=== PATIENT | female | born 1960 | race Caucasian/White ===

== ENCOUNTER 2018-01-09 11:16 | Inpatient (IN) | payer OTHER ==
[~2018-01-09] VITALS: Ht 152.4 cm; Wt 63.0 kg
--- NOTE | ~2018-01-09 | 2DMMODE ---
[facility] [address] [place] [address] 2 D/M-MODE ECHOCARDIOGRAM Name: KENYATTA SABILLON Room #: 170-23 ADM IN ..#: [id number] Admission: 01/09/18 Attend Phys: Teddy White, Discharge: Date of : 62 Date of Service: 01/09/18 1543 Report #: [id number] THIS REPORT FOR: //name// APPROVED REPORT Study performed: 01/09/2018 14:36:08 EXAM: Comprehensive 2D, Doppler, and color-flow Echocardiogram Patient Location: ER Room #: 9 Status: routine BSA: 1.69 HR: 81 bpm BP: 143/103 mmHg Rhythm: NSR Other Information Study Quality: Good Indications Multiple syncopal episodes. Echo Enhancing Agent Indication: Rule out Shunt Agent(s) / Amount(s) Used: Agitated Saline 6 cc 2D Dimensions RVDd: 31.16 mm LVEF(%): 64.77 (>50%) IVSd: 10.95 (7-11mm) LVOT Diam: 18.78 (18-24mm) LVDd: 47.26 mm PWd: 11.15 (7-11mm) Ascending Ao: 28.20 (22-36mm) LVDs: 30.53 (25-40mm) Aortic Root: 31.53 mm Davison's LVEF: 64.77 % Volumes Left Atrial Volume (Systole) Single Plane 4CH: 33.66 mL Single Plane 2CH: 54.08 mL LA ESV Index: 27.00 mL/m2 Aortic Valve AoV Peak Zhou.: 2.10 m/s AO Peak Gr.: 17.72 mmHg LVOT Max P.55 mmHg AO Mean Gr.: 10.01 mmHg AO V2 Mean: 1.51 m/s LVOT Max V: 1.37 m/s [facility] [place] [address] 2 D/M-MODE ECHOCARDIOGRAM Name: KENYATTA SABILLON Room #: 170-23 [facility] IN ..#: [id number] Admission: 01/09/18 Attend Phys: Teddy White, Discharge: Date of : 62 Date of Service: 01/09/18 1543 Report #: [id number] AO V2 VTI: 37.00 cm OLIVIA Vmax: 1.81 cm2 Mitral Valve E/A Ratio: 0.8 MV Decel. Time: 173.13 ms MV E Max Zhou.: 0.84 m/s MV A Zhou.: 0.99 m/s MV PHT: 50.21 ms IVRT: 83.04 ms Pulmonary Valve PV Peak Zhou.: 0.89 m/s PV Peak Gr.: 3.19 mmHg Pulmonary Vein P Vein S: 0.78 m/s P Vein A: 0.39 m/s P Vein D: 0.42 m/s P Vein A Dur.: 121.1 msec P Vein S/D Ratio: 1.86 Tricuspid Valve TR Peak Zhou.: 2.45 m/s RAP Estimate: 5.00 mmHg TR Peak Gr.: 23.93 mmHg PA Pressure: 29.00 mmHg Left Ventricle The left ventricle is normal size. There is normal LV segmental wall motion. There is normal left ventricular wall thickness. Left ventricular systolic function is normal. LVEF is 60%. Mild diastolic dysfunction is present (impaired relaxation pattern). Right Ventricle The right ventricle is normal size. The right ventricular systolic function is normal. Atria The left atrium size is normal. The right atrium size is normal. Aortic Valve The aortic valve is normal in structure. Trace aortic regurgitation. There is no aortic valvular stenosis. Mitral Valve The mitral valve is normal in structure. [place] [address] 2 D/M-MODE ECHOCARDIOGRAM Name: KENYATTA SABILLON Room #: 170-23 [facility] IN [facility]#: [id number] Admission: 01/09/18 Attend Phys: Teddy White, Discharge: Date of : 62 Date of Service: 01/09/18 1543 Report #: [id number] Tricuspid Valve The tricuspid valve is normal in structure. Trace tricuspid regurgitation. Estimated PAP 24mmHg plus the right atrial pressure Pulmonic Valve The pulmonary valve is normal in structure. Trace pulmonic regurgitation. Great Vessels The aortic root is normal in size. The ascending aorta is normal in size. IVC is not visualized. Pericardium There is no pericardial effusion. <Conclusion> The left ventricle is normal size. LVEF is 60%. The aortic valve is normal in structure. Trace aortic regurgitation. The mitral valve is normal in structure. Trace mitral regurgitation. The tricuspid valve is normal in structure. Trace tricuspid regurgitation. Estimated PAP 24mmHg plus the right atrial pressure The pulmonary valve is normal in structure. Trace pulmonic regurgitation. There is no pericardial effusion. <ELECTRONICALLY SIGNED> By: Víctor Bell MD 01/09/18 1543 1543 1543 Víctor Bell MD /INF
--- NOTE | ~2018-01-09 | S ---
[facility] [place] [address] SURGICAL PATH RPT PROCEDURE Name: KENYATTA REIS Room #: 428-P DIS IN M.R.#: [id number] Admission: 01/09/18 Date of : 62 Discharge: 01/16/18 Report #: [id number] Path Case #: [id number] PATHOLOGY REPORT COLLECTION DATE: 01/16/2018 RECEIVED DATE: 01/16/2018 SUBMITTING PHYS: Dr. Teddy Chance OTHER PHYS: Dr. Teddy Leblanc SPECIMEN(S) RECEIVED: A.Bone marrow, biopsy B.Bone marrow, clot and/or particle prep C.Bone marrow, aspirate smears D.Peripheral smear * * * * * * * * * * * * FINAL DIAGNOSIS: Bone marrow aspirate, biopsy, cell clot and peripheral blood: - Peripheral blood with pancytopenia including moderate normocytic to mildly macrocytic anemia, mild leukopenia and moderate thrombocytopenia. - Normocellular bone marrow with trilineage hematopoiesis, mild erythroid hyperplasia / myeloid hypoplasia, mild dyspoiesis and no evidence of lymphoma or acute leukemia (see comment). COMMENT: Overall, the bone marrow is normocellular for the patient's age with trilineage hematopoiesis, mild erythroid hyperplasia / myeloid hypoplasia, mild dyspoiesis and no evidence of lymphoma or acute leukemia. The dyspoiesis is mild and does not meet the morphologic criteria for myelodysplasia. Correlation with clinical history, additional laboratory and cytogenetics are recommended. (CLW:maria t; 01/18/2018) PATHOLOGIST: Yumiko Malik M.D. REPORT ELECTRONICALLY SIGNED BY: Yumiko Malik M.D. DATE/TIME: 01/18/2018 21:51 * * * * * * * * * * * * MICROSCOPIC DESCRIPTION: CBC Data (01/16/18): WBC 3,600 /uL, RBC 2.52, Hgb 8.4 g/dL, Hct 25.0 %, MCV 99.1 fL, MCH 33.4 pg, MCHC 33.7 g/dL, RDW 13.8 %, Plt 93,000 /uL. Manual white blood cell differential: segs 45%, bans, 2%, lymphs 25%, monos 25%, eos 1%, and basos 2%. Peripheral Blood Smear: Cytomorphological examination of the Handy's stained peripheral [address] [address] SURGICAL PATH RPT PROCEDURE Name: KENYATTA REIS Room #: 428-P [facility] IN ..#: [id number] Admission: 01/09/18 Date of : 62 Discharge: 01/16/18 Report #: [id number] Path Case #: [id number] blood smear confirms the provided data. Red blood cells show moderate normocytic and to mildly macrocytic anemia with no significant anisopoikilocytosis. White blood cells are mildly decreased in number. They are predominantly segmented neutrophils and are without significant dyspoiesis or significant left shift. Lymphocytes are predominantly small, round, and mature appearing with condensed chromatin and scant cytoplasm with admixed large granular lymphocytes and rare reactive appearing lymphocytes. Monocytes are mature. Platelets are moderately decreased in number and mainly normal in morphology with rare larger platelets noted. Aspirate Smears: Cytomorphological examination of the Handy's stained aspirate smears shows spicules present. The overall cellularity is approximately 50%. The myeloid to erythroid ratio is 1:1. Full myeloid maturation is identified and is without significant dyspoiesis. Erythroid maturation is mildly dyserythropoietic with irregular nuclear contours and basophilic stippling. In a 500 cell differential, there are 1% blasts (no Ford rods are seen), 51% more differentiated myeloids, 42% erythroid precursors, 5% lymphocytes and 1% plasma cells. Megakaryocytes are proportional in number and both normal and abnormal in morphology with variable sizes and nuclear abnormalities. No lymphoid aggregate or markedly atypical lymphoid cells are seen. Plasma cells are without atypia. Iron stain of the aspirate smear shows 0/4+ iron positivity with spicules present. No ringed sideroblasts are identified. Core Biopsy and Cell Clot: The decalcified bone marrow core biopsy is adequate. The bone marrow is normocellular with an overall cellularity of approximately 50%. The myeloid to erythroid ratio is 1-2:1. Myeloid maturation is without significant dyspoiesis. Erythroid maturation is mildly dyserythropoietic. Megakaryocytes are normal in number and both normal and abnormal in morphology. No lymphoid aggregates or markedly atypical lymphoid cells are seen. Bony trabeculae and blood vessels are unremarkable. The cell clot has spicules present that are similar in cellularity and differential morphology as previously described. The M/E ratio appears closer to 1:1. Iron stain of the cell clot (Block B1) shows 1/4+ iron positivity with spicules present. Flow Cytometry: Flow cytometric immunophenotypic analysis was performed at [facility]. The diagnosis is "no diagnostic immunophenotypic abnormalities detected." There are 11.8% lymphocytes. Of the lymphocytes, there are 81% T-cells with a CD4/CD8 ratio of 2.9 and no aberrant T-cell antigen expression and 10% polyclonal B-cells (kappa lambda ratio of 1.4). There are 0.6% CD34 positive cells (blasts) and precursor B cells are not detected. Granulocytes are left shifted and monocytes show evidence of maturation with decreased CD13 expression. The clinical history of [address] [place] [address] SURGICAL PATH RPT PROCEDURE Name: RAMANDEEPKENYATTA Locke Room #: 428-P [facility] IN M.R.#: [id number] Admission: 01/09/18 Date of : 62 Discharge: 01/16/18 Report #: [id number] Path Case #: [id number] pancytopenia is noted. Flow detects a left shifted myeloid maturation pattern with mild monocyte phenotypic atypia, but without an increase in CD34 positive myeloblasts (0.6% of total cells). These changes are relatively not specific. Please see separate flow cytometry report from [facility] ([id number]). Cytogenetics Analysis: Cytogenetic chromosomal analysis is pending at [facility] ([id number]). (CLW:pit; 01/18/2018) GROSS PATHOLOGY: A. Received in formalin labeled "Kenyatta Reis, BM biopsy," is a single needle core of rosa bone, measuring 1.0 cm in length and 0.2 cm in diameter. The specimen is submitted entirely in cassette A1, following decalcification. B. Received in formalin labeled "Kenyatta Reis, clot (BM aspirate)," is blood coagulum, measuring 3.0 x 1.3 x 0.1 cm in aggregate dimensions. The specimen is submitted entirely in cassette B1. (CAA; 01/16/2018) CLINICAL HISTORY: Pancytopenia, hepatosplenomegaly, syncopal attacks 57-year-old woman with pancytopenia INITIAL CPT CODE(S): A; 96714, 82442 B; 39377, 63923 C; 33949, 74710 D; 41113 Professional services performed by [facility] at [facility] [address], [place] [address] Technical services performed by [facility] at [address] [place] [address], [facility] [address], [place] [address]. [facility] [address] [place] [address] PHONE: [phone] DIRECTOR: Sanjeev Brooks M.D. * * * END OF REPORT * * *
--- NOTE | ~2018-01-09 | EKG ---
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: ELIANA : 1960 Requested By: Shahnaz Melara Order Number: [id number] MD: Pravin Kumar Measurements Intervals [place] Rate: 103 P: 9 WY: 121 QRS: -8 QRSD: 104 T: 52 QT: 380 QTc: 498 Interpretive Statements Sinus tachycardia Probable left ventricular hypertrophy Nonspecific T abnormalities, anterior leads Borderline prolonged QT interval Compared to ECG 09/13/2017 07:50:04 T-wave abnormality now present Electronically Signed On 01-10-2018 8:04:49 LINE PALLETIZER by Pravin Kumar [email or web address] <ELECTRONICALLY SIGNED> By: Pravin Kumar MD, [facility] 01/10/18 0804 1144 1144 Pravin Kumar MD, [facility] /EPI
--- NOTE | ~2018-01-09 | S ---
[facility] [place] [address] SURGICAL PATH RPT PROCEDURE Name: KENYATTA REIS Room #: 428-P ADM IN M.R.#: [id number] Admission: 01/09/18 Date of : 62 Discharge: Report #: [id number] Path Case #: [id number] PATHOLOGY REPORT COLLECTION DATE: 01/09/2018 RECEIVED DATE: 01/10/2018 SUBMITTING PHYS: Dr. Teddy White OTHER PHYS: Dr. Pedro Leblanc SPECIMEN(S) RECEIVED: A.Peripheral smear * * * * * * * * * * * * FINAL DIAGNOSIS: Peripheral blood smear: - Moderate normocytic anemia and severe thrombocytopenia. (See comment) COMMENT: Overall the peripheral blood has moderate normocytic anemia and severe thrombocytopenia. The WBC count and differential are within the normal reference ranges. The etiology of the findings is unclear based entirely on slide review. Potential causes of normocytic anemia include anemia of chronic disease, treated and/or compensated vitamin and mineral deficiencies, acute blood loss, dilutional and primary bone marrow disorders. Potential causes of thrombocytopenia include immune and non-immune platelet destruction, drug and/or toxic exposures, consumption, dilutional and primary bone marrow disorders. Correlation with clinical history and additional laboratory data is recommended. (CLW:malcolm; 01/11/2018) PATHOLOGIST: Yumiko Malik M.D. REPORT ELECTRONICALLY SIGNED BY: Yumiko Malik M.D. DATE/TIME: 01/11/2018 13:15 * * * * * * * * * * * * MICROSCOPIC DESCRIPTION: CBC Data (01/09/2018): WBC 7,400 /uL, RBC 2.94, hemoglobin 9.9 g/dL, hematocrit 28.4%, MCV 96.6 fL, MCH 33.8 pg, MCHC 35.0 g/dL, RDW 13.5%. Platelet count 25,000 /uL. Automated white blood cell differential: segs 78.9%, lymphs 13.2%, monos 7.7%, eos 0.1% and basos 0.1%. Peripheral Blood Smear: Cytomorphological examination of the Handy's stained peripheral blood smear confirms the provided data. Red blood cells show moderate normocytic anemia with no significant anisopoikilocytosis. [address] [address] SURGICAL PATH RPT PROCEDURE Name: KENYATTA REIS Room #: 428-P ADM IN M.R.#: [id number] Admission: 01/09/18 Date of : 62 Discharge: Report #: [id number] Path Case #: [id number] White blood cells are predominantly segmented neutrophils and are without significant dyspoiesis or significant left shift. Lymphocytes are predominantly small, round, and mature appearing with condensed chromatin and scant cytoplasm with admixed large granular lymphocytes. On scanning, no markedly atypical lymphoid cells are seen. Monocytes are mature. Platelets are markedly decreased in number and mainly normal in morphology with rare larger platelets noted. (CLW:malcolm; 01/11/2018) GROSS PATHOLOGY: Received are two Handy's stained peripheral blood smears labeled, Kenyatta Reis CLINICAL HISTORY: A 57-year-old woman with anemia and thrombocytopenia. Morphologic review of the peripheral blood smear is requested by the patient's physician. INITIAL CPT CODE(S): A; NC Professional services performed by [facility] at [facility] [address], [place] [address] Technical services performed by [facility] at [address] [place] [address], [address], [place] [address]. [facility] [address] [place] [address] PHONE: [phone] DIRECTOR: Sanjeev Brooks M.D. * * * END OF REPORT * * *
--- NOTE | ~2018-01-09 | HC ---
[facility] [place] [address] CONSULTATION Name: KENYATTA SABILLON Room #: 428-P ADM IN M.R.#: [id number] Admission: 01/09/18 Attend Phys: Teddy White DO Discharge: Date of : 62 Report #: [id number] THIS REPORT FOR: //name// CC: Angie ROLAND physician/PCP Teddy Scott MD REASON FOR CONSULTATION: Concern about lymphoma. HISTORY OF PRESENT ILLNESS: The patient is a 57-year-old lady who lives in [facility], who presented to the hospital with complaints of syncope. When she was here, she was found to have abnormal liver test as well as anemia and thrombocytopenia. The patient gives a history of having had some stomach troubles back in September. They thought she had gallbladder difficulties. She had a cholecystectomy and EGD at that time. Symptoms had resolved. Since that time, she has had ongoing difficulties. She has about a 25-pound weight loss from to now. She has a decreased appetite. Food, she eats small bites; if she eats more, she does not feel very good and maybe takes Prilosec intermittently, maybe 2 per week. Has been taking ibuprofen about 8-10 per day for about the last 6 months. She also describes the passing out that is up to 10 times a day. It is worse. When it first started beginning, noticed it when she was getting out of the bathtub. Note that she does take a hot shower. It sounds like she would feel like the curtain coming down. When she would sort of come to, she will feel sort of tingly all over and also be sweaty, which sounds to me like an autonomic nervous system. The nausea has been going on for about 3 days. She has also had been vomiting about 15 times per day. It sounds like she has a bad back from the past. She has no headache. No fevers, although she has felt chilled, but the chills are the tremor she gets after the passing out and recovery. She has had diarrhea for about the last 2-3 months, sort of watery in nature. She describes it to various people as sort of black and other people not black, so it is hard to know. No skin rash. No trouble moving her air. No arm or leg swelling. No dysuria. No vaginal discharge or bleeding. No breast abnormalities. PAST MEDICAL HISTORY: Past history is notable for the history of the back pain of about, I think she said about, 20 years' duration. It sounds like she might even have had some type of vertebroplasty in the past. It sounds like she might have been on some narcotics previous to last admit, though I did not go into details with her. Past history, as mentioned includes, history of hypertension, history of peptic ulcer disease and hiatal hernia in the past. Last colonoscopy probably about 10 [facility] [address] [place] [address] CONSULTATION Name: KENYATTA SABILLON Room #: 428-P ADM IN M.R.#: [id number] Admission: 01/09/18 Attend Phys: Teddy White DO Discharge: Date of : 62 Report #: [id number] years ago. Last EGD was about August or September and one was planned for later today. Also, has a history of GERD, had a hysterectomy and BSO for fibroids in the past, also had cardiomyopathy and it sounds like it improved or resolved. ALLERGIES: AMOXICILLIN, BENADRYL AND PROCHLORPERAZINE. FAMILY HISTORY: Father had hypertension and had a stroke about 76. Mother at 81 maybe with lymphoma. Brothers and sisters without health issues. One daughter who is alive and well. SOCIAL HISTORY: She retired from [employer]. Lives near [place], [address] [place] in [place]. Nonsmoker. Alcohol, maybe 3 beverages on Fridays and Saturdays. No street drugs. MEDICATIONS: At this time in the hospital currently include pantoprazole 40 daily IV, tramadol p.r.n., IV fluids and Zofran p.r.n. LABORATORY DATA: Lab tests are notable for a BUN of 62 yesterday, creatinine of yesterday; note that baseline appears to be more like around 1.3 or 1.4 back in September after discharge from the hospital. Transaminases, AST was 245; back on discharge, it had been 48 and 69. Total bilirubin 5 on discharge; last time, it had been 1.6. Direct bilirubin 3.2; in the past, it had been 0.8. Alkaline phosphatase 117 and ALT 86; on discharge, it had been 30. Total protein 9.5, but she may be dehydrated and may need to consider SPEP. Albumin 4.5; on discharge, it had been 3.7. We will see repeat after hydration. LDH pending. Alcohol level this admit less than 10. Iron 82, TIBC 226 and percent saturation 36. INR yesterday 1.3, today repeat pending. APTT not drawn this admit; had been normal. Fibrinogen pending. D-dimer pending. Drug screen negative. White count yesterday 7.4, repeat pending. Note that in talking with the tech, no acute forms or no viral-type changes. Hemoglobin yesterday 11.9, repeat 9.9 and this morning is pending. Note that in talking with the tech, he said no schistocytes were seen. MCV 96.6, which is stable for this patient. RDW of 13.5, stable. Platelets yesterday first measure 50,000; second measured 25,000; also back in 09/13, they were 130,000; back in 2013, they were 208,000 range. Differential had slightly increased neutrophils with a differential of 79% segmented neutrophils, 13.2% lymphocytes, 7.7 monocytes, 0.1 eosinophils, 0.1 basophils and ANC of 5.8, with a comment of large platelets being seen. No anatomical history. MPV was about 10.3, if I recall. Retic count pending. Immature platelet fraction pending. Peripheral smear review pending. TSH back in September normal. Folate ordered just and it came back at 4; the patient has been placed on folic acid. Vitamin B12 normal range at 633. Hepatitis markers and CMV pending. U/A yesterday had showed trace blood. Bilirubin test was negative. Microscopy, 0-2 rbc's. IMAGING DATA: Imaging studies this admit include chest x-ray with no acute [address] [address] CONSULTATION Name: KENYATTA SABILLON Room #: 428-P ADM IN M.R.#: [id number] Admission: 01/09/18 Attend Phys: Teddy White DO Discharge: Date of : 62 Report #: [id number] head, no evidence of intracranial hemorrhage or other acute changes. Ultrasound of the carotids, no significant plaque within the carotid arteries. MRCP without contrast showing unremarkable. MRI and CT showed the same splenomegaly, but really no obstruction and then MRIs of the head that are back have not really shown any lesions. ASSESSMENT AND PLAN: 1. Anemia. Hemoglobin dropped to 9.9; this morning's is pending. Iron panel do not suggest clear iron deficiency. Low folate, being replaced. B12 is okay. It sounds like she is not hemolyzing, but LDH and retic count are pending and peripheral smear review pending. Waiting to try Hemoccult stool, but I am concerned about the patient's description of black stool. We will very likely transfuse unless hemoglobin and platelets are rebounding this morning. I have called in to GI, but I have not heard. I suspect that it is GI blood loss and renal insufficiency. Also, note that chichi did not see any schistocytes. 2. Thrombocytopenia, 50,000 on admit and 25,000 yesterday; this a.m. is pending. Platelet antibody pending. Other tests as above pending and chichi says MPV 10 range. Coags were normal, but repeat pending. We will very likely transfuse if the patient is lower or about the same. Right now, during this time, I am uncertain and even may like to keep her platelets close to 50,000. 3. Elevated total bilirubin, AST and ALT, status post cholecystectomy 4 months ago. MRCP shows no obstruction pattern. Would wonder about a cholestatic picture, may be medication related, but she is not on much. We will defer to GI and talk to them. 4. Epigastric pain, nausea and vomiting. I suspect that it is nonsteroidal-related gastritis due to ibuprofen. Awaiting GI scope when she recovers. 5. A 25-pound weight loss, probably from anorexia and poor appetite. 6. Slight hepatomegaly with liver palpable about 7 cm below the costal margin. We will continue watching. 7. Syncopal episodes, unclear episode or etiology, may be related to orthostatic hypertension. 8. Chronic back pain of 20 years. Avoid nonsteroidals. 9. Bruising reported by the patient and her concern for leukemia or lymphoma. Mostly, these are in areas of trauma, suspect related to platelets and it may indicate that her platelets have been lower than usual for the last several weeks. 10. Renal insufficiency. Continues IV fluids. 11. Splenomegaly. Unclear why spleen is above 95th percentile. We will sort out as we go along and may need additional testing, such as bone marrow. We will follow with you. <ELECTRONICALLY SIGNED> By: Pedro Leblanc MD 01/11/18 0732 0824 1019 Pedro Leblanc MD /nt
--- NOTE | ~2018-01-09 | HC ---
[facility] [place] [address] CONSULTATION Name: KENYATTA SABILLON Room #: 428-P [facility] IN M.R.#: [id number] Admission: 01/09/18 Attend Phys: Tedyd White DO Discharge: 01/16/18 Date of : 62 Report #: [id number] THIS REPORT FOR: //name// CC: ASUNCION physician/PCP Teddy White DATE OF SERVICE: 01/09/2018 HISTORY OF PRESENT ILLNESS: This is a 57-year-old female patient who was evaluated by me for any neurological etiology for this patient's passing out spell. This patient had multiple passing out spells. She had one 6 months ago, but she did not seek any medical attention. She had one in the shower, which led to bruises on the shoulder as well as head. Nobody witnessed any seizure activity. She tends to feel dizzy when she is standing. If she can sit down, she can sometime abort her spell. REVIEW OF SYSTEMS: Indicate that this patient does drink about 3 alcoholic drinks every day on the weekend. Record indicates she had some cardiomyopathy. Presently, she is having pretty significant amount of liver abnormality with a total bilirubin of 5. SGOT, SGPT is high. She is otherwise retired. She has a history of weight loss. When she came in, her potassium was low. Her BUN and creatinine is high. GFR is only 22. So she is having multiple problems. This was a relevant 14-point review of system. PAST MEDICAL HISTORY: Positive for this spell 6 months ago. FAMILY HISTORY: Negative for congenital epilepsy. SOCIAL HISTORY: She drinks alcohol as described above. PHYSICAL EXAMINATION: The patient is alert, responsive, able to follow simple and complex command. Cranial nerve examination 2-12 is unremarkable. Strength, sensation, reflexes and tone is symmetrical. There is no meningeal sign. There is no carotid bruit. I could not look at the patient's fundus. Cardiac examination is unremarkable. No respiratory difficulty or rhonchi. She is moderately well built individual. Her hearing and vision looks adequate. She has no thyroid mass. Blood pressure is 155/93, respirations 18, pulse is 82, temperature is 98.2. LABORATORY DATA: White count is ____ and as mentioned above, she has multiple abnormalities in the blood. Head CT scan does not show any acute changes. Carotid Doppler is unremarkable. IMPRESSION AND PLAN: It is unlikely that there is any neurological etiology for the patient's symptoms. However, with so many things going on with this patient, I think it will be desirable to exclude that. I have ordered an MRI in [address] [address] CONSULTATION Name: KENYATTA SABILLON Room #: 428-P [facility] IN M.R.#: [id number] Admission: 01/09/18 Attend Phys: Teddy White DO Discharge: 01/16/18 Date of : 62 Report #: [id number] this patient and I will also get an EEG done. If both of them are okay, then it will be even less likely that this patient has any neurological etiology and then the concentration should be on evaluating and managing non-neurological etiology, which I will defer to you. Thank you very much for this referral and if you have any question, please feel free to contact me. <ELECTRONICALLY SIGNED> By: Steven Jefferson MD 01/19/18 1549 [id number] 215 Steven Jefferson MD /nt
--- NOTE | ~2018-01-09 | S ---
[facility] [place] [address] SURGICAL PATH RPT PROCEDURE Name: KENYATTA REIS Room #: 428-P ADM IN M.R.#: [id number] Admission: 01/09/18 Date of : 62 Discharge: Report #: [id number] Path Case #: [id number] PATHOLOGY REPORT COLLECTION DATE: 01/14/2018 RECEIVED DATE: 01/14/2018 SUBMITTING PHYS: Dr. Sergo Martins OTHER PHYS: Dr. Teddy White SPECIMEN(S) RECEIVED: A.Gastric bx B.Bx of distal esophagus * * * * * * * * * * * * FINAL DIAGNOSIS: A. Gastric bx: - Mild chronic inactive gastritis. - An H. pylori immunostain is negative (Block A1; appropriately reactive control). B. Bx of distal esophagus: - Columnar junctional mucosa; chronically inflamed. - Negative for intestinal metaplasia. - No squamous mucosa identified. PATHOLOGIST: Freddy Royal M.D. REPORT ELECTRONICALLY SIGNED BY: Freddy Royal M.D. DATE/TIME: 01/15/2018 09:09 * * * * * * * * * * * * GROSS PATHOLOGY: A. Received in formalin labeled "Kenyatta Reis, gastric BX, rule out H. pylori," are 2 segments of rosa soft tissue measuring 0.8 x 0.2 x 0.2 cm in aggregate dimensions and ranging from 0.3 to 0.5 cm in maximum dimension. The specimen is submitted entirely in cassette A1. B. Received in formalin labeled "Kenyatta Chato, BX of distal esophagus rule out Santiago's," is a segment of rosa soft tissue measuring 0.4 cm in maximum dimension. The specimen is submitted entirely in cassette B1. (TSD; 01/14/2018) CLINICAL HISTORY: Pre-OP DX: GI bleed, melena Post-OP DX: Hiatal hernia, esophagitis, gastritis INITIAL CPT CODE(S): [facility] [address] [place] [address] SURGICAL PATH RPT PROCEDURE Name: KENYATTA REIS Room #: 428-P ADM IN M.R.#: [id number] Admission: 01/09/18 Date of : 62 Discharge: Report #: [id number] Path Case #: [id number]; [id number], [id number] B; [id number] Professional services performed by [facility] [address], [place] [address] Technical services performed by [facility] at [address] [place] [address], [address], [place] [address]. [facility] [address] [address] PHONE: [phone] DIRECTOR: Sanjeev Brooks M.D. * * * END OF REPORT * * *
--- NOTE | ~2018-01-09 | EEG ---
[facility] [place] [address] ELECTROENCEPHALOGRAM Name: KENYATTA SABILLON Room #: 428-P [facility] IN M.R.#: [id number] Admission: 01/09/18 Attend Phys: Teddy White DO Discharge: 01/16/18 Date of : 62 Report #: [id number] THIS REPORT FOR: //name// CC: ASUNCION physician/PCP Teddy White DATE OF SERVICE: 01/10/2018 The patient is being evaluated for syncope. The background activity in this patient's EEG is about 9 Hz and 30 microvolts. There is a symmetrical activity. This patient became drowsy and that is associated with bilateral slowing and vertex sharp waves on both sides. Throughout the record, no active epileptiform activity was noticed. IMPRESSION: This patient's EEG is intermixed with some theta range slowing on both sides. There is a nonspecific finding which can occur with drowsiness, effect of psychotropic medication, dementia, etc. No active epileptiform activity was noticed during this record. Thank you very much for this referral. <ELECTRONICALLY SIGNED> By: Steven Jefferson MD 01/19/18 1552 1826 1841 Steven Jefferson MD /nt
[~2018-01-09 11:16] MED LIST: APAP650 PO; BENADRYL ALLERG25 MG PO; BENADRYL25 MG PO; CATAPRES0.1 MG PO; CLEOCIN HCL150 MG PO; CLONAZEPAM 0.50.5 M1 PO; FLEXERIL PO; IBUPROFEN 600600 M1 PO; LAMICTAL; LISINOPRIL10 MG PO; METOPROLOL SUCC25 M1 PO; NAPROSYN500 MG PO; NOHOMEMEDICATIONS; NORCO 5-325 TA1 EACH PO; PERCOCET 7.5-31 EACH PO; PHENERGAN 25 MG25 M1 PO; PREDNISONE 20 M20 MG PO; PREDNISONE 5 MG5 MG PO; PREDNISONE50 MG PO; PROTONIX40 M2 PO; REGLAN 5 MG TAB5 MG GT; SUBOXONE 2 MG-1 EAC1; WELLBUTRIN XL300 M1 PO; XANAX XR1 MG PO; ZANTAC 150MG T150 MG PO; ZOFRAN ODT8 MG PO; ZOFRAN4 MG PO
[2018-01-09 11:24] VITALS: BP 150/108
[2018-01-09 11:54] LABS: ABSOLUTE NEUTROPHILS 9.5 thou/uL (1.4-8.2); BASOPHILS 0.3 % (0.0-2.0); HEMATOCRIT 34.3 % (37.0-47.0); HEMOGLOBIN 11.9 gm/dL (12.0-15.0); LYMPHOCYTES 7.8 % (24.0-44.0); MCH 33.4 pg (26.0-34.0); MCHC 34.8 g/dL (28.0-37.0); MONOCYTES 6.8 % (1.0-8.0); POLYS 85.1 % (36.0-66.0); RBC 3.57 mil/uL (4.20-5.00); RDW 13.6 % (10.5-14.5); WBC 11.1 thou/uL (4.0-11.0)
[2018-01-09 12:08] LABS: INR 1.3; PROTIME 12.9 Seconds (9.3-11.4)
[2018-01-09 12:09] LABS: ANION GAP 18 mmol/L (7-16); BUN 62 mg/dL (7-18); CALCIUM 9.6 mg/dL (8.5-10.1); CHLORIDE 93 mmol/L (98-107); CO2 25 mmol/L (21-32); CREATININE 2.3 mg/dL (0.6-1.0); GLUCOSE 181 mg/dL (74-106); SODIUM 136 mmol/L (136-145)
[2018-01-09 12:16] LABS: ALBUMIN 4.5 g/dL (3.4-5.0); DIRECT BILIRUBIN 3.2 mg/dL (<0.1-0.3); SGOT 245 U/L (15-37); SGPT 86 U/L (30-65); TOTAL PROTEIN 9.5 g/dL (6.4-8.2); TROPONIN-I < 0.04 ng/mL (<0.06)
[2018-01-09 12:22] LABS: PLATELET COUNT 50 thou/uL (150-400)
[2018-01-09 15:13] VITALS: BP 143/80
[2018-01-09 15:48] VITALS: BP 159/75
[2018-01-09 17:54] VITALS: BP 155/93
[2018-01-09 19:54] LABS: ABSOLUTE NEUTROPHILS 5.8 thou/uL (1.4-8.2); BASOPHILS 0.1 % (0.0-2.0); EOSINOPHILS 0.1 % (0.0-3.0); HEMATOCRIT 28.4 % (37.0-47.0); LYMPHOCYTES 13.2 % (24.0-44.0); MCH 33.8 pg (26.0-34.0); MCV 96.6 fL (80.0-100.0); MONOCYTES 7.7 % (1.0-8.0); POLYS 78.9 % (36.0-66.0); RBC 2.94 mil/uL (4.20-5.00); RDW 13.5 % (10.5-14.5); WBC 7.4 thou/uL (4.0-11.0)
[2018-01-09 19:56] LABS: HEMOGLOBIN 9.9 gm/dL (12.0-15.0)
[2018-01-09 20:00] VITALS: BP 149/93
[2018-01-09 20:04] LABS: % SATURATION 36 % (20-39); IRON 82 ug/dL (50-170); TIBC 226 ug/dL (250-450)
[2018-01-09 20:34] LABS: LARGE PLATELETS OCCASIONAL; PLATELET COUNT 25 thou/uL (150-400)
[2018-01-10] VITALS: BP 121/82
[2018-01-10 00:52] LABS: URINE BLOOD TRACE (Negative); URINE GLUCOSE-RANDOM* NEGATIVE (Negative); URINE KETONES 1+ (Negative); URINE LEUKOCYTES-REFLEX NEGATIVE (Negative); URINE NITRITE-REFLEX NEGATIVE (Negative); URINE PROTEIN (DIPSTICK) TRACE (Negative)
[2018-01-10 00:54] LABS: ICTOTEST (BILI CONFIRMATORY) Negative (Negative); URINE BILIRUBIN NEGATIVE (Negative); URINE CLARITY SL CLOUDY; URINE COLOR DARK YELLOW
[2018-01-10 03:15] LABS: AMP/METHAMP Negative (Negative); BARBITURATES Negative (Negative); BENZODIAZEPINES Negative (Negative); COCAINE Negative (Negative); METHADONE Negative (Negative); OPIATES Negative (Negative); PCP Negative (Negative)
[2018-01-10 04:02] VITALS: BP 138/97
[2018-01-10 07:40] VITALS: BP 139/103
[2018-01-10 08:31] LABS: ABSOLUTE NEUTROPHILS 3.6 thou/uL (1.4-8.2); BASOPHILS 0.2 % (0.0-2.0); EOSINOPHILS 0.5 % (0.0-3.0); HEMATOCRIT 26.8 % (37.0-47.0); HEMOGLOBIN 9.4 gm/dL (12.0-15.0); LYMPHOCYTES 17.4 % (24.0-44.0); MCH 34.1 pg (26.0-34.0); MCV 97.5 fL (80.0-100.0); OBSERVED RETIC COUNT 0.87 % (0.6-2.6); POLYS 73.9 % (36.0-66.0); RBC 2.75 mil/uL (4.20-5.00); RDW 13.4 % (10.5-14.5); WBC 4.8 thou/uL (4.0-11.0)
[2018-01-10 08:35] VITALS: BP 127/91
[2018-01-10 08:40] LABS: ALBUMIN 3.5 g/dL (3.4-5.0); TOTAL BILIRUBIN 2.6 mg/dL (<0.1-1.0); TOTAL PROTEIN 7.2 g/dL (6.4-8.2)
[2018-01-10 08:44] LABS: D-DIMER 2.47 ug/mLFEU (0.19-0.50); FIBRINOGEN 197.3 mg/dL (210-360); INR 1.3; PROTIME 13.1 Seconds (9.3-11.4)
[2018-01-10 09:22] LABS: PLATELET COUNT 22 thou/uL (150-400)
[2018-01-10 10:53] LABS: CALCIUM 8.1 mg/dL (8.5-10.1); CREATININE 1.4 mg/dL (0.6-1.0)
[2018-01-10 10:56] LABS: POTASSIUM 2.8 mmol/L (3.5-5.1)
[2018-01-10 12:03] VITALS: BP 135/92; BP 139/74
[2018-01-10 15:33] LABS: HEMATOCRIT 25.4 % (37.0-47.0); HEMOGLOBIN 8.7 gm/dL (12.0-15.0); MCH 33.7 pg (26.0-34.0); MCHC 34.4 g/dL (28.0-37.0); MCV 97.9 fL (80.0-100.0); RBC 2.6 mil/uL (4.20-5.00); RDW 13.6 % (10.5-14.5); WBC 3.9 thou/uL (4.0-11.0)
[2018-01-10 16:00] VITALS: BP 161/93
[2018-01-11] LABS: MAGNESIUM 1.4 mg/dL (1.8-2.4); POTASSIUM 3.1 mmol/L (3.5-5.1)
[2018-01-11 01:06] LABS: HAV IgM AB (ANTI-HAV IgM) Negative (Negative); HEPATITIS B SURFACE AG Negative (Negative); HEPATITIS C VIRUS AB <0.1 (0.0-0.9)
[2018-01-11 04:00] VITALS: BP 146/67
[2018-01-11 07:08] LABS: HEMOGLOBIN 8.4 gm/dL (12.0-15.0); MCV 98.5 fL (80.0-100.0); WBC 2.9 thou/uL (4.0-11.0)
[2018-01-11 07:10] LABS: HEMATOCRIT 24.4 % (37.0-47.0); MCH 33.8 pg (26.0-34.0); MCHC 34.3 g/dL (28.0-37.0); PLATELET COUNT 39 thou/uL (150-400); RBC 2.47 mil/uL (4.20-5.00); RDW 13.4 % (10.5-14.5)
[2018-01-11 07:12] VITALS: BP 136/79
[2018-01-11 07:24] LABS: CALCIUM 8.3 mg/dL (8.5-10.1); POTASSIUM 3.9 mmol/L (3.5-5.1)
[2018-01-11 08:22] LABS: ALBUMIN 3.1 g/dL (3.4-5.0); DIRECT BILIRUBIN 1.1 mg/dL (<0.1-0.3); TOTAL BILIRUBIN 1.6 mg/dL (<0.1-1.0)
[2018-01-11 09:12] LABS: ABSOLUTE NEUTROPHILS 1.9 thou/uL (1.4-8.2); PLATELET ESTIMATE DECREASED
[2018-01-11 11:07] VITALS: BP 130/86
[2018-01-11 15:14] VITALS: BP 141/76
[2018-01-11 19:10] VITALS: BP 136/92
[2018-01-12 00:39] VITALS: BP 157/95
[2018-01-12 03:51] VITALS: BP 149/84
[2018-01-12 05:23] LABS: ABSOLUTE NEUTROPHILS 2.1 thou/uL (1.4-8.2); BASOPHILS 0.8 % (0.0-2.0); EOSINOPHILS 2.6 % (0.0-3.0); HEMATOCRIT 26.1 % (37.0-47.0); HEMOGLOBIN 8.8 gm/dL (12.0-15.0); LYMPHOCYTES 26.4 % (24.0-44.0); MCH 33.6 pg (26.0-34.0); MCHC 33.8 g/dL (28.0-37.0); MCV 99.5 fL (80.0-100.0); MONOCYTES 8.4 % (1.0-8.0); PLATELET COUNT 50 thou/uL (150-400); POLYS 61.8 % (36.0-66.0); RBC 2.62 mil/uL (4.20-5.00); RDW 13.5 % (10.5-14.5); WBC 3.3 thou/uL (4.0-11.0)
[2018-01-12 05:41] LABS: ALBUMIN 3.3 g/dL (3.4-5.0); CALCIUM 7.8 mg/dL (8.5-10.1); CREATININE 0.9 mg/dL (0.6-1.0); TOTAL BILIRUBIN 1.3 mg/dL (<0.1-1.0); TOTAL PROTEIN 7.4 g/dL (6.4-8.2)
[2018-01-12 05:42] LABS: POTASSIUM 2.9 mmol/L (3.5-5.1)
[2018-01-12 08:13] VITALS: BP 163/103
[2018-01-12 16:30] VITALS: BP 142/98
[2018-01-12 20:26] VITALS: BP 150/90
[2018-01-13 04:17] VITALS: BP 135/80
[2018-01-13 05:16] LABS: ABSOLUTE NEUTROPHILS 2.3 thou/uL (1.4-8.2); EOSINOPHILS 2.1 % (0.0-3.0); HEMOGLOBIN 8.4 gm/dL (12.0-15.0); MCV 98.2 fL (80.0-100.0); MONOCYTES 11.5 % (1.0-8.0)
[2018-01-13 05:20] LABS: BASOPHILS 0.5 % (0.0-2.0); HEMATOCRIT 24.2 % (37.0-47.0); LYMPHOCYTES 20.7 % (24.0-44.0); MCH 33.9 pg (26.0-34.0); MCHC 34.5 g/dL (28.0-37.0); PLATELET COUNT 38 thou/uL (150-400); POLYS 65.2 % (36.0-66.0); RBC 2.46 mil/uL (4.20-5.00); RDW 13.6 % (10.5-14.5); WBC 3.5 thou/uL (4.0-11.0)
[2018-01-13 05:23] LABS: CALCIUM 7.8 mg/dL (8.5-10.1); CREATININE 0.9 mg/dL (0.6-1.0); POTASSIUM 3.3 mmol/L (3.5-5.1)
[2018-01-13 08:00] VITALS: BP 147/98
[2018-01-13 11:22] VITALS: BP 158/98; BP 160/89
[2018-01-13 15:13] LABS: MAGNESIUM 1.1 mg/dL (1.8-2.4); POTASSIUM 3.5 mmol/L (3.5-5.1)
[2018-01-13 18:16] VITALS: BP 150/98; BP 154/98
[2018-01-13 20:00] VITALS: BP 164/105
[2018-01-14] VITALS (11 sets, daily range): BP systolic 102–182; BP diastolic 47–119
[2018-01-14 06:06] LABS: HEMATOCRIT 24.5 % (37.0-47.0); HEMOGLOBIN 8.3 gm/dL (12.0-15.0); MCH 33.7 pg (26.0-34.0); RBC 2.47 mil/uL (4.20-5.00); RDW 14.2 % (10.5-14.5); WBC 3.2 thou/uL (4.0-11.0)
[2018-01-14 06:25] LABS: CALCIUM 8.9 mg/dL (8.5-10.1); CREATININE 0.8 mg/dL (0.6-1.0); POTASSIUM 3.6 mmol/L (3.5-5.1)
[2018-01-14 08:49] LABS: PLATELET COUNT 63 thou/uL (150-400)
[2018-01-14 08:54] LABS: PLATELET ESTIMATE DECREASED
[2018-01-14 14:09] LABS: IgA 334 mg/dL (87-352); IgG 1165 mg/dL (700-1600); IgM 318 mg/dL (26-217)
[2018-01-15 03:00] VITALS: BP 161/98
[2018-01-15 05:55] LABS: ALBUMIN 3.2 g/dL (3.4-5.0); CREATININE 0.9 mg/dL (0.6-1.0); POTASSIUM 3.7 mmol/L (3.5-5.1); TOTAL BILIRUBIN 1.3 mg/dL (<0.1-1.0); TOTAL PROTEIN 7.1 g/dL (6.4-8.2)
[2018-01-15 06:03] LABS: HEMATOCRIT 23.2 % (37.0-47.0); HEMOGLOBIN 7.8 gm/dL (12.0-15.0); MCH 33.2 pg (26.0-34.0); MCHC 33.8 g/dL (28.0-37.0); MCV 98.5 fL (80.0-100.0); PLATELET COUNT 66 thou/uL (150-400); RBC 2.36 mil/uL (4.20-5.00); WBC 2.9 thou/uL (4.0-11.0)
[2018-01-15 07:09] VITALS: BP 151/87
[2018-01-15 07:23] LABS: ABSOLUTE NEUTROPHILS 1.9 thou/uL (1.4-8.2)
[2018-01-15 07:50] VITALS: BP 151/87
[2018-01-15 11:54] VITALS: BP 114/75
[2018-01-15 12:09] LABS: KAPPA FREE LIGHT CHAINS 25.3 mg/L (3.3-19.4); KAPPA/LAMBDA RATIO 1.02 (0.26-1.65); LAMBDA FREE LIGHT CHAINS 24.8 mg/L (5.7-26.3)
[2018-01-15 15:00] VITALS: BP 132/86
[2018-01-15 19:15] VITALS: BP 123/78
[2018-01-16 03:40] VITALS: BP 160/101
[2018-01-16 06:13] LABS: HEMOGLOBIN 8.4 gm/dL (12.0-15.0); MCH 33.4 pg (26.0-34.0); MCHC 33.7 g/dL (28.0-37.0); MCV 99.1 fL (80.0-100.0); PLATELET COUNT 93 thou/uL (150-400); RBC 2.52 mil/uL (4.20-5.00); RDW 13.8 % (10.5-14.5); WBC 3.6 thou/uL (4.0-11.0)
[2018-01-16 06:27] LABS: CALCIUM 8.9 mg/dL (8.5-10.1); CREATININE 0.9 mg/dL (0.6-1.0); POTASSIUM 3.3 mmol/L (3.5-5.1)
[2018-01-16 07:41] VITALS: BP 141/90
[2018-01-16 07:59] VITALS: BP 141/90
[2018-01-16 08:43] LABS: ABSOLUTE NEUTROPHILS 1.7 thou/uL (1.4-8.2)
[2018-01-16 10:31] VITALS: BP 125/84
[2018-01-16] MEDS ORDERED: OXYCODONE HCL 55 MG PO (10:36)
[2018-01-16 12:17] VITALS: BP 125/84
== END 2018-01-16 12:55 | disposition home or self-care (01) | DRG 813 ==
LOC: ER 11:16 → EROBS 12:21 → 4E 12:21 → EROBS 16:02 → 4E 16:21
PROVIDERS: Emergency Medicine; Family Medicine; Internal Medicine Gastroenterology; Internal Medicine Hematology & Oncology
PROC: 30233R1 Transfusion of Nonautologous Platelets into Peripheral Vein, Percutaneous Approach (ICD-10-PCS; principal; 2018-01-14)
PROC: 0DB68ZX Excision of Stomach, Via Natural or Artificial Opening Endoscopic, Diagnostic (ICD-10-PCS; principal; 2018-01-14)
PROC: 0DB98ZX Excision of Duodenum, Via Natural or Artificial Opening Endoscopic, Diagnostic (ICD-10-PCS; principal; 2018-01-14)
PROC: 07DR3ZX Extraction of Iliac Bone Marrow, Percutaneous Approach, Diagnostic (ICD-10-PCS; 2018-01-16)
PROC: 079T3ZX Drainage of Bone Marrow, Percutaneous Approach, Diagnostic (ICD-10-PCS; 2018-01-16)
DX: D69.6 Thrombocytopenia, unspecified (principal); K29.71 Gastritis, unspecified, with bleeding; N17.1 Acute kidney failure with acute cortical necrosis; E43 Unspecified severe protein-calorie malnutrition; D61.818 Other pancytopenia; K92.1 Melena; D75.89 Other specified diseases of blood and blood-forming organs; I95.1 Orthostatic hypotension; S40.019A Contusion of unspecified shoulder, initial encounter; R63.4 Abnormal weight loss; D64.9 Anemia, unspecified; R16.0 Hepatomegaly, not elsewhere classified; G89.29 Other chronic pain; M54.9 Dorsalgia, unspecified; F03.90 Unspecified dementia, unspecified severity, without behavioral disturbance, psychotic disturbance, mood disturbance, and anxiety; E87.6 Hypokalemia; K20.9 Esophagitis, unspecified; K44.9 Diaphragmatic hernia without obstruction or gangrene; R74.0 Nonspecific elevation of levels of transaminase and lactic acid dehydrogenase [LDH]; F10.20 Alcohol dependence, uncomplicated; M47.892 Other spondylosis, cervical region; M48.02 Spinal stenosis, cervical region; R16.2 Hepatomegaly with splenomegaly, not elsewhere classified; R12 Heartburn; S09.90XA Unspecified injury of head, initial encounter; X58.XXXA Exposure to other specified factors, initial encounter; Y93.89 Activity, other specified; Y92.89 Other specified places as the place of occurrence of the external cause; Y99.8 Other external cause status; Z82.49 Family history of ischemic heart disease and other diseases of the circulatory system; Z68.27 Body mass index [BMI] 27.0-27.9, adult; Z82.3 Family history of stroke; Z83.3 Family history of diabetes mellitus; Z88.8 Allergy status to other drugs, medicaments and biological substances; Z90.710 Acquired absence of both cervix and uterus; Z88.1 Allergy status to other antibiotic agents; Z79.899 Other long term (current) drug therapy; Z79.1 Long term (current) use of non-steroidal anti-inflammatories (NSAID)
CPT/HCPCS: 10183; 62110; 62900; 70005

== ENCOUNTER 2018-04-06 16:08 | Inpatient (IN) | payer OTHER ==
[~2018-04-06] VITALS: Ht 165.1 cm; Wt 67.1 kg
[2018-04-06] VITALS (9 sets, daily range): BP systolic 119–152; BP diastolic 80–110
--- NOTE | ~2018-04-06 | EKG ---
[address] [place] [address] ELECTROCARDIOGRAM REPORT Name: KENYATTA SABILLON Room #: 237-P ADM IN M.R.#: [id number] Admission: 04/06/18 Attend Phys: Kaia Lea Discharge: Date of : 62 Report #: [id number] THIS REPORT FOR: //name// [facility] ED Test Date: 2018-04-06 Test Time: 16:16:42 Pat Name: KENYATTA SABILLON Department: Room: Gender: F Commodity Management Specialist: Sidney MORRISSEY : 1960 Requested By: Shahnaz Melara Order Number: [id number] MD: Zach Rodgers Measurements Intervals [place] Rate: 113 P: 13 MI: 141 QRS: 2 QRSD: 98 T: 23 QT: 365 QTc: 501 Interpretive Statements Sinus tachycardia Abnormal T, consider ischemia, anterior leads Compared to ECG 01/09/2018 11:44:58 Possible ischemia now present T-wave abnormality still present Electronically Signed On 04-07-2018 12:09:03 CDT by Zach Rodgers [email or web address] <ELECTRONICALLY SIGNED> By: Zach Rodgers MD 04/07/18 9803 15 15 Zach Rodgers MD /ODELL
--- NOTE | ~2018-04-06 | H ---
[facility] [address] HISTORY AND PHYSICAL Name: KENYATTA SABILLON Room #: 361-P ADM IN M.R.#: [id number] Admission: 04/06/18 Attend Phys: Kaia Lea Discharge: Date of : 62 Report #: [id number] THIS REPORT FOR: //name// CC: ASUNCION physician/PCP Kaia NINO PCP DATE OF SERVICE: 04/06/2018 REASON FOR CONSULTATION: Tongue laceration. HISTORY OF PRESENT ILLNESS: The patient is a 57-year-old female who is postictal, had a seizure and bit her tongue. She had been having trouble with low platelet count, she says, that has been present on a previous hospitalization. She has low platelet count now and she is getting ready to have platelets transfused. I have been asked to evaluate her tongue laceration. PAST MEDICAL HISTORY: Significant for abdominal pain, acute kidney injury, alcohol dependence, withdrawal, anxiety, chest pain, closed head injury, dehydration, liver disease, hematemesis, hyperglycemia, hypokalemia, hypertension, intractable vomiting, narcotic withdrawal, orthostatic hypotension, shoulder contusion, thrombocytopenia, urinary tract infection and syncope. ALLERGIES: AMOXICILLIN, DIPHENHYDRAMINE AND PROCHLORPERAZINE. PAST SURGICAL HISTORY: Hysterectomy, cholecystectomy and oophorectomy. FAMILY HISTORY: Coronary artery disease, diabetes and pulmonary embolism. SOCIAL HISTORY: She states that she drinks alcohol on special occasions. REVIEW OF SYSTEMS: Significant for coughing, bleeding from the tongue. PHYSICAL EXAMINATION: GENERAL: She is a well-developed female, who initially was snoring, sitting up in bed. HEENT: Head is normocephalic. She has had obvious trauma with facial contusion. She has periorbital ecchymoses. Nasal, no active rhinorrhea or epistaxis. Oral cavity, she has a laceration on the dorsum of her tongue, which is approximately 2 cm. It is not actively bleeding, but there is a little bit of oozing. She has a clot on top of her tongue. When I wipe it off, there is a little bit of bleeding from the center portion. NECK: No palpable adenopathy. Trachea is midline. No crepitation. IMPRESSION: Tongue laceration with thrombocytopenia. [address] [address] HISTORY AND PHYSICAL Name: KENYATTA SABILLON Room #: 361-P [facility] IN M.R.#: [id number] Admission: 04/06/18 Attend Phys: Kaia Lea Discharge: Date of : 62 Report #: [id number] PLAN: Ice chips would be helpful, pressure with 4 x 4 intraorally on her superior tongue and platelet transfusion. This should resolve her bleeding. It does not appear that this laceration needs to be repaired as it is small and the edges are well approximated and there is minimal bleeding. By: 1133 1237 Helder Champagne MD /nt
--- NOTE | ~2018-04-06 | HC ---
[facility] [place] [address] CONSULTATION Name: JOSEJNVINHKENYATTA M Room #: 361-P [facility] IN M.R.#: [id number] Admission: 04/06/18 Attend Phys: Kaia Lea Discharge: 04/09/18 Date of : 62 Report #: [id number] THIS REPORT FOR: //name// CC: ASUNCION physician/PCP Kaia NINO PCP DATE OF SERVICE: 04/07/2018 REASON FOR CONSULTATION: Possible tongue laceration. HISTORY OF PRESENT ILLNESS: History was obtained from both the patient and from review of the hospital records. This is a 57-year-old female who was brought to the [facility] via EMS yesterday afternoon status post possible seizure. Seizure activity was not directly witnessed. The patient was found on the kitchen floor "foaming at the mouth" and having a seizure-like type movements and was reported as being postictal and having some generalized confusion as well as urinary incontinence. The patient herself does not have a recollection of the event and believes she had a loss of consciousness in the kitchen. She feels that she may have bit her tongue while falling. She had had a similar occurrence of falling and striking her head about a week ago. The patient was evaluated in the Emergency Room. At that time, there was noted to be on their examination a puncture wound to the mid anterior aspect of the tongue with a little, if any, active bleeding. The remainder of the upper airway appeared unremarkable. There is no note of any other signs of trauma to the head area. She had a CT scan of the head, which demonstrated normal noncontrast CT. She was admitted to the ICU due to her history and observation for alcohol dependence withdrawal as well as her history of possible seizure disorder. I was asked to consult the patient. There was a concern that she may have a tongue laceration present. Per nursing, there has been no active bleeding bearing in mind that this actual "laceration" event would have taken place almost 30 hours ago at this time. The patient cannot volunteer to me if she feels her tongue is more or less swollen today than it was yesterday. The patient does admit she has poor dentition and poor dental history. She denies at this time any difficulty with breathing. She has no difficulty with particular swallowing aside from the size of the tongue. PAST MEDICAL AND SURGICAL HISTORY: Notable for previous cholecystectomy, oophorectomy, hysterectomy, previous history of syncopal episodes. FAMILY HISTORY: Notable for diabetes and coronary artery disease. The patient is noted to imbibe in alcohol frequently. MEDICATIONS: There are no known reported home medications. [address] [address] CONSULTATION Name: KENYATTA SABILLON Room #: 361-P [facility] IN M.R.#: [id number] Admission: 04/06/18 Attend Phys: Kaia Lea Discharge: 04/09/18 Date of : 62 Report #: [id number] ALLERGIES: AMOXICILLIN. ALSO, POSSIBLE ALLERGY TO BENADRYL AND PROCHLORPERAZINE. PHYSICAL EXAMINATION: A female who is alert, conversant, responding to questions normally. She was examined in ICU bed in a semi-reclining position on her back. Examination of her face reveals ecchymosis in the left lower orbital region with minimal edema noted. A small bruising noted on the right malar eminence. There are no palpable step-offs to the orbital rims inferiorly or superiorly. The zygomatic arches are palpated intact. There is no TMJ discomfort. The mandible appears intact. A small bruise over the nasal dorsum. Intranasal examination shows a right-sided nasal septal deviation, chronic in nature. Dry mucus is noted in the left nasal vault. Palpation of the anterior neck does not reveal any palpable fullness. There is no fullness or tenderness in the submental or submandibular space. Intraoral examination reveals normal mandibular excursion. Dentition is fair to poor. There is noted to be no ecchymosis in the floor of the mouth. The sublingual space is soft. There is obvious fullness and erythema to the tongue. There is a small puncture wound on the ventral right anterior tongue that is not actively bleeding. I did not visualize any lacerations to the lateral surface of the tongue on either side. With a 10 blade, I was able to expose the soft palate. The patient can have adequate airway through the oral cavity route. The tongue is soft and the anterior portion is certainly full and firm. A flexible nasopharyngoscopy was performed after explaining the procedure to the patient. I topically anesthetized the left naris, and after waiting several minutes, advanced the flexible scope through the anterior naris into the posterior naris on the left side. No abnormalities were noted aside from the deviated septum. The nasopharyngeal mucosa is unremarkable. The fossa of Rosenmuller intact. Flexing it down into the oropharynx, the oropharyngeal lateral worthington and posterior worthington appear unremarkable. In the hypopharynx, there is no swelling involving the base of tongue. The vallecula was clean. The lingual and laryngeal surface of the epiglottis is intact. There is no swelling involving the hypopharyngeal mucosa or piriform sinus mucosa. The vocal cords are intact and move normally bilaterally. In summary, the scope shows the patient has a patent airway. The scope was withdrawn. The patient tolerated the procedure well. Laboratory test did demonstrate a hemoglobin of 10.3; hematocrit of 29.8; platelet count of 37,000. PT 12.1, INR 1.2. The patient is hypocalcemic as well. ASSESSMENT: Status post possible seizure disorder from alcohol withdrawal or other etiology. Findings demonstrated in the oral cavity support the possibility of a small puncture wound to the anterior tongue, which resulted secondarily into a submucosal hematoma. This course would be complicated by her [facility] [address] [place] [address] CONSULTATION Name: KENYATTA SABILLON Room #: 361-P [facility] IN ..#: [id number] Admission: 04/06/18 Attend Phys: Kaia Lea Discharge: 04/09/18 Date of : 62 Report #: [id number] history of thrombocytopenia as well as receiving a dose of Lovenox yesterday evening. The Lovenox has since been held and per nursing the swelling appears to be improving. RECOMMENDATIONS: 1. I would hold all anticoagulation until the hematoma is improving, which typically takes 3-7 days, perhaps longer in her history of thrombocytopenia. 2. I would encourage head of bed elevation at least 30 degrees at all times to reduce any further swelling. 3. Her airway is intact and as long as the swelling does not progress, no further intervention would be necessary in the upper airway. However, I would keep her in the ICU until the swelling of the tongue is showing demonstrable signs of improving. 4. No direct intervention needs to be done for the tongue or the puncture wound to the tongue at this time aside from good oral care as the patient will be able to participate in this in the next several days. I will hold any oral care aside from mouth swabs at this time. As the patient's tongue swelling improves, she should be able to return to a normal diet and normal oral hygiene. 5. If not contraindicated by other health reasons, I would recommend a short course of IV Decadron 20 mg tonight and repeat it in the morning to help reduce any potential swelling. We will clear this through her hospitalist. I will follow with you tomorrow. Thank you for the consultation. By: [id number] Parth Casas MD /nt
[~2018-04-06 16:08] MED LIST changes: +OXYCODONE HCL 55 MG PO
[2018-04-06 16:37] LABS: HEMOGLOBIN 10.3 gm/dL (12.0-15.0)
[2018-04-06 16:38] LABS: ABSOLUTE NEUTROPHILS 3.2 thou/uL (1.4-8.2); BASOPHILS 0.8 % (0.0-2.0); EOSINOPHILS 0.9 % (0.0-3.0); HEMATOCRIT 29.8 % (37.0-47.0); MCH 32.9 pg (26.0-34.0); MCHC 34.5 g/dL (28.0-37.0); MCV 95.4 fL (80.0-100.0); MONOCYTES 6.6 % (1.0-8.0); POLYS 75.7 % (36.0-66.0); RBC 3.13 mil/uL (4.20-5.00); RDW 14.1 % (10.5-14.5); WBC 4.2 thou/uL (4.0-11.0)
[2018-04-06 16:44] LABS: CALCIUM 8.4 mg/dL (8.5-10.1); CREATININE 1.1 mg/dL (0.6-1.0)
[2018-04-06 16:48] LABS: ALBUMIN 3.8 g/dL (3.4-5.0); DIRECT BILIRUBIN 1.1 mg/dL (<0.1-0.3); TOTAL BILIRUBIN 2.7 mg/dL (<0.1-1.0); TOTAL PROTEIN 8.2 g/dL (6.4-8.2)
[2018-04-06 16:49] LABS: POTASSIUM 2.8 mmol/L (3.5-5.1)
[2018-04-06 16:54] LABS: TROPONIN-I 0.06 ng/mL (<0.06)
[2018-04-06 17:26] LABS: APTT 23.6 Seconds (24.5-32.8); INR 1.2; PROTIME 12.1 Seconds (9.3-11.4)
[2018-04-06 17:41] LABS: PLATELET COUNT 37 thou/uL (150-400)
[2018-04-07] VITALS (24 sets, daily range): BP systolic 111–161; BP diastolic 73–101
[2018-04-07 00:44] LABS: AMP/METHAMP Negative (Negative); BARBITURATES Negative (Negative); BENZODIAZEPINES Negative (Negative); COCAINE Negative (Negative); METHADONE Negative (Negative); OPIATES POSITIVE (Negative); PCP Negative (Negative)
[2018-04-07 01:19] LABS: POTASSIUM 2.9 mmol/L (3.5-5.1)
[2018-04-08] VITALS (13 sets, daily range): BP systolic 110–148; BP diastolic 61–88
[2018-04-08 05:18] LABS: HEMATOCRIT 24.6 % (37.0-47.0); HEMOGLOBIN 8.5 gm/dL (12.0-15.0); MCH 33.4 pg (26.0-34.0); RBC 2.54 mil/uL (4.20-5.00); WBC 8.1 thou/uL (4.0-11.0)
[2018-04-08 05:19] LABS: MCHC 34.5 g/dL (28.0-37.0); RDW 13.8 % (10.5-14.5)
[2018-04-08 05:29] LABS: CALCIUM 8.1 mg/dL (8.5-10.1); CREATININE 0.7 mg/dL (0.6-1.0); MAGNESIUM 1.7 mg/dL (1.8-2.4); PHOSPHORUS 3.4 mg/dL (2.5-4.9); POTASSIUM 3.7 mmol/L (3.5-5.1)
[2018-04-08 15:40] LABS: ABSOLUTE NEUTROPHILS 5.3 thou/uL (1.4-8.2); HEMOGLOBIN 7.2 gm/dL (12.0-15.0); PLATELET COUNT 28 thou/uL (150-400); POLYS 82.9 % (36.0-66.0); WBC 6.4 thou/uL (4.0-11.0)
[2018-04-08 15:42] LABS: BASOPHILS 0.5 % (0.0-2.0); EOSINOPHILS 0.4 % (0.0-3.0); HEMATOCRIT 20.8 % (37.0-47.0); LYMPHOCYTES 10.5 % (24.0-44.0); MCH 33.7 pg (26.0-34.0); MCHC 34.4 g/dL (28.0-37.0); MONOCYTES 5.7 % (1.0-8.0); RBC 2.13 mil/uL (4.20-5.00); RDW 14.5 % (10.5-14.5)
[2018-04-09 04:30] VITALS: BP 117/74
[2018-04-09 06:38] LABS: HEMATOCRIT 20.2 % (37.0-47.0); MCH 33.7 pg (26.0-34.0); MCHC 34.5 g/dL (28.0-37.0); MCV 97.6 fL (80.0-100.0); RBC 2.07 mil/uL (4.20-5.00); RDW 14.5 % (10.5-14.5); WBC 4.8 thou/uL (4.0-11.0)
[2018-04-09 07:11] LABS: ALBUMIN 3.2 g/dL (3.4-5.0); CALCIUM 8.5 mg/dL (8.5-10.1); CREATININE 0.7 mg/dL (0.6-1.0); POTASSIUM 3.2 mmol/L (3.5-5.1); TOTAL BILIRUBIN 1.5 mg/dL (<0.1-1.0); TOTAL PROTEIN 7.1 g/dL (6.4-8.2)
[2018-04-09 07:20] VITALS: BP 127/70
[2018-04-09] MEDS ORDERED: CHLORDIAZEPOXIDE5 M2 PO (09:22)
[2018-04-09] MEDS ORDERED: DILANTIN100 MG PO (09:22)
[2018-04-09] MEDS ORDERED: PERIDEX 0.12%473 M1 MUCOUS MEM (09:23)
[2018-04-09] MEDS ORDERED: VITAMIN B-1100 M2 PO (09:23)
[2018-04-09] MEDS ORDERED: PERCOCET PO (09:24)
[2018-04-09 09:58] VITALS: BP 127/70
== END 2018-04-09 10:46 | disposition home or self-care (01) | DRG 100 ==
LOC: ER 16:08 → 3W 16:48 → EROBS 16:48 → ER 18:03 → ICU 18:17 → 3W 04-08 12:06 → ENTRNSPT 04-09 10:33 → EDTRNSPTSTS 04-09 10:38 → 3W 04-09 10:46
PROVIDERS: Emergency Medicine; Hospitalist; Nurse Practitioner Family
PROC: 30233R1 Transfusion of Nonautologous Platelets into Peripheral Vein, Percutaneous Approach (ICD-10-PCS; principal; 2018-04-08)
DX: R56.9 Unspecified convulsions (principal); G93.40 Encephalopathy, unspecified; F10.231 Alcohol dependence with withdrawal delirium; F11.20 Opioid dependence, uncomplicated; D64.9 Anemia, unspecified; E87.6 Hypokalemia; E83.42 Hypomagnesemia; S09.90XA Unspecified injury of head, initial encounter; D69.6 Thrombocytopenia, unspecified; S01.512A Laceration without foreign body of oral cavity, initial encounter; X58.XXXA Exposure to other specified factors, initial encounter; F41.9 Anxiety disorder, unspecified; R32 Unspecified urinary incontinence; D50.0 Iron deficiency anemia secondary to blood loss (chronic); Y93.89 Activity, other specified; Y92.89 Other specified places as the place of occurrence of the external cause; Y99.8 Other external cause status; Z90.710 Acquired absence of both cervix and uterus; Z90.721 Acquired absence of ovaries, unilateral; Z90.49 Acquired absence of other specified parts of digestive tract; Z88.1 Allergy status to other antibiotic agents; Z88.8 Allergy status to other drugs, medicaments and biological substances; Z83.3 Family history of diabetes mellitus; Z82.49 Family history of ischemic heart disease and other diseases of the circulatory system
CPT/HCPCS: 10078; 10879

== ENCOUNTER 2018-05-21 22:05 | Inpatient (IN) | payer OTHER ==
[~2018-05-21] VITALS: Ht 165.1 cm; Wt 64.0 kg
--- NOTE | ~2018-05-21 | EKG ---
[address] [place] [address] ELECTROCARDIOGRAM REPORT Name: KENYATTA SABILLON Room #: 360-P [facility] IN .R.#: [id number] Admission: 05/21/18 Attend Phys: Kraig Munoz MD Discharge: Date of : 62 Report #: [id number] THIS REPORT FOR: //name// [facility] ED Test Date: 2018-05-21 Test Time: 22:25:22 Pat Name: KENYATTA SABILLON Department: Room: Gender: F Heel Builder Machine: LINDSAY : 1960 Requested By: Jorge Brito Order Number: [id number] MD: Pravin Kumar Measurements Intervals [place] Rate: 102 P: 17 ID: [id number] QRS: 7 QRSD: 104 T: 53 QT: 413 QTc: 539 Interpretive Statements Sinus tachycardia Nonspecific ST and T wave abnormality Prolonged QT interval Baseline wander in lead(s) I,III,aVL Compared to ECG 04/06/2018 16:16:42 Nonspecific change in the ST and T-wave segments Electronically Signed On 05-22-2018 8:21:31 CDT by Pravin Kumar [email or web address] <ELECTRONICALLY SIGNED> By: Pravin Kumar MD, [facility] 05/22/18 0821 2225 2225 Pravin Kumar MD, [facility] /EPI
[~2018-05-21 22:05] MED LIST changes: +CHLORDIAZEPOXIDE5 M2 PO; +DILANTIN100 MG PO; +PERCOCET PO; +PERIDEX 0.12%473 M1 MUCOUS MEM; +VITAMIN B-1100 M2 PO
[2018-05-21 22:08] VITALS: BP 169/103
[2018-05-21 23:00] LABS: ABSOLUTE NEUTROPHILS 4.2 thou/uL (1.4-8.2)
[2018-05-21 23:01] LABS: BASOPHILS 0.5 % (0.0-2.0); EOSINOPHILS 0.5 % (0.0-3.0); HEMOGLOBIN 9.1 gm/dL (12.0-15.0); LYMPHOCYTES 14.5 % (24.0-44.0); MCHC 35.2 g/dL (28.0-37.0); MCV 87.9 fL (80.0-100.0); MONOCYTES 8.6 % (1.0-8.0); POLYS 75.9 % (36.0-66.0); RBC 2.95 mil/uL (4.20-5.00); RDW 14.5 % (10.5-14.5); WBC 5.5 thou/uL (4.0-11.0)
[2018-05-21 23:08] LABS: CALCIUM 8.5 mg/dL (8.5-10.1); CREATININE 1.4 mg/dL (0.6-1.0)
[2018-05-21 23:14] LABS: ALBUMIN 3.9 g/dL (3.4-5.0); TOTAL BILIRUBIN 2.3 mg/dL (<0.1-1.0); TOTAL PROTEIN 8.4 g/dL (6.4-8.2)
[2018-05-21 23:32] LABS: PLATELET COUNT 23 thou/uL (150-400)
[2018-05-22] VITALS: BP 131/90
[2018-05-22 04:06] VITALS: BP 125/86
[2018-05-22 05:51] LABS: CREATININE 1.2 mg/dL (0.6-1.0)
[2018-05-22 06:04] LABS: MAGNESIUM 0.8 mg/dL (1.8-2.4); POTASSIUM 2.4 mmol/L (3.5-5.1)
[2018-05-22 08:01] VITALS: BP 129/86; BP 137/87
[2018-05-22 11:15] VITALS: BP 129/89
[2018-05-22 16:00] VITALS: BP 124/82
[2018-05-22 18:25] LABS: MAGNESIUM 3.7 mg/dL (1.8-2.4)
[2018-05-22 18:28] LABS: POTASSIUM 2.6 mmol/L (3.5-5.1)
[2018-05-22 19:27] VITALS: BP 117/76
[2018-05-23 04:08] VITALS: BP 110/72
[2018-05-23 07:57] LABS: POTASSIUM 3.8 mmol/L (3.5-5.1)
[2018-05-23 08:20] VITALS: BP 114/70; BP 114/74
[2018-05-23 08:28] LABS: HEMOGLOBIN 8.5 gm/dL (12.0-15.0); RDW 15.1 % (10.5-14.5); WBC 5.1 thou/uL (4.0-11.0)
[2018-05-23 08:30] LABS: HEMATOCRIT 24.5 % (37.0-47.0); MCH 31.2 pg (26.0-34.0); MCHC 34.8 g/dL (28.0-37.0); MCV 89.8 fL (80.0-100.0); RBC 2.73 mil/uL (4.20-5.00)
[2018-05-23 08:37] LABS: ALBUMIN 3.5 g/dL (3.4-5.0); CALCIUM 8.3 mg/dL (8.5-10.1); CREATININE 0.9 mg/dL (0.6-1.0); MAGNESIUM 2.6 mg/dL (1.8-2.4); TOTAL BILIRUBIN 1.6 mg/dL (<0.1-1.0); TOTAL PROTEIN 7.6 g/dL (6.4-8.2)
[2018-05-23 12:12] VITALS: BP 109/75
[2018-05-23 13:20] VITALS: BP 129/86
[2018-05-23] MEDS ORDERED: KEPPRA 500 MG500 M1 PO (16:31)
[2018-05-23 16:37] VITALS: BP 109/75
== END 2018-05-23 17:37 | disposition home or self-care (01) | DRG 100 ==
LOC: ER 22:05 → EROBS 23:31 → 3W 23:31 → ENTRNSPT 05-23 17:21 → 3W 05-23 17:37
PROVIDERS: Emergency Medicine; Internal Medicine; Nurse Practitioner Acute Care
DX: G40.909 Epilepsy, unspecified, not intractable, without status epilepticus (principal); N17.0 Acute kidney failure with tubular necrosis; G89.29 Other chronic pain; M54.5 Low back pain; E87.6 Hypokalemia; D64.9 Anemia, unspecified; E83.42 Hypomagnesemia; Z90.710 Acquired absence of both cervix and uterus; Z90.721 Acquired absence of ovaries, unilateral; Z88.1 Allergy status to other antibiotic agents; Z88.8 Allergy status to other drugs, medicaments and biological substances; Z82.49 Family history of ischemic heart disease and other diseases of the circulatory system; Z83.3 Family history of diabetes mellitus; Z90.49 Acquired absence of other specified parts of digestive tract
CPT/HCPCS: 10879